=== PATIENT | female | born 1955 | race Caucasian/White ===

== ENCOUNTER 2025-07-30 17:20 | Emergency (ER) | payer OTHER ==
[~2025-07-30] VITALS: Ht 152.4 cm; Wt 76.4 kg
--- NOTE | 2025-07-30 19:34 | ED.PDOC ---
History of Present Illness HPI Comments 69 year-old female presents to the ED with a chief complaint of headache and bilateral ear pain for X2 weeks. Patient reports associated bilateral ear burning and itchy sensation. Patient has no further complaints at this time and otherwise denies symptoms of dizziness, weakness, hearing loss, vision loss, or SOB. Chief Complaint: Headache Time Seen by MD: 19:37 Reviewed Notes: Medications, Allergies Allergies: Coded Allergies: Carbamazepine (Verified Allergy, Unknown, 07/30/25) Home Meds Active Scripts Methylprednisolone (Medrol Dosepak) 4 Mg Oliver, 4 MG PO UD for 6 Days, #21 TAB UAD Prov:SHERRY MICHELLE [employer] BUFFER 07/30/25 Information Source: Patient Mode of Arrival: Ambulatory Severity: Moderate Timing: Weeks Duration: Since onset Past Medical History PAST MEDICAL HISTORY: Asthma, HTN, Seizures Surgical History: Unknown TELESCOPE REPAIRER History: No Pertinent TELESCOPE REPAIRER History Family History Family History: Unknown Social History Smoker: Non-Smoker, Unknown Alcohol: Denies ETOH Use Drugs: Denies Drug Use Lives In: Home Constitutional: denies: chills, diaphoresis, fatigue, fever, malaise, sweats, weakness, others EENTM: reports: ear pain; denies: blurred vision, double vision, ear bleeding, ear discharge, ear drainage, ear ringing, eye pain, eye redness, hearing loss, mouth pain, mouth swelling, nasal discharge, nose bleeding, nose congestion, nose pain, photophobia, tearing, throat pain, throat swelling, voice changes, others Respiratory: denies: cough, hemoptysis, orthopnea, SOB at rest, shortness of breath, SOB with excertion, stridor, wheezing, others Cardiovascular: denies: chest pain, dizzy spells, diaphoresis, Dyspnea on exertion, edema, irregular heart beat, left arm pain, lightheadedness, palpitations, PND, syncope, others Gastrointestinal: denies: abdomen distended, abdominal pain, blood streaked bowels, constipated, diarrhea, dysphagia, difficulty swallowing, hematemesis, melena, nausea, poor appetite, poor fluid intake, rectal bleeding, rectal pain, vomiting, others Genitourinary: denies: abnormal vagina bleeding, burning, dyspareunia, dysuria, flank pain, frequency, hematuria, incontinence, pain, , vagina discharge, urgency, others Neurological: reports: headache; denies: dizziness, fainting, left sided numbness, left sided weakness, numbness, paresthesia, pre-existing deficit, right sided numbness, right sided weakness, seizure, speech problems, tingling, tremors, weakness, others Musculoskeletal: denies: back pain, gout, joint pain, joint swelling, muscle pain, muscle stiffness, neck pain, others Integumetry: denies: bruises, change in color, change in hair/nails, dryness, laceration, lesions, lumps, rash, wounds, others Hematologic/Lymphatic: denies: anemia, blood clots, easy bleeding, easy bruising, swollen glands, others Endocrine: denies: excessive hunger, excessive sweating, excessive thirst, excessive urination, flushing, intolerance to cold, intolerance to heat, unexplained weight gain, unexplained weight loss, others Psychiatric: denies: anxiety, bipolar disorder, depression, hopeless, panic disorder, schizophrenia, sleepless, suicidal, others All Other Systems: Reviewed and Negative Physical Exam General Appearance: No Apparent Distress, Normal HEENT: Normal ENT Inspection, Pharynx Normal, TMs Normal Neck: Full Range of Motion, Non-Tender Respiratory: Lungs Clear, No Respiratory Distress, Normal Breath Sounds Cardiovascular: No Edema, No JVD, No Murmur, No Gallop, Normal Peripheral Pulses, Regular Rate/Rhythm Breast Exam: Deferred Gastrointestinal: No Organomegaly, Non Tender, No Pulsatile Mass, Normal Bowel Sounds, Soft Genitalia: Deferred Pelvic: Deferred Rectal: Deferred Extremities: Normal capillary refill, Normal range of motion, No pedal edema Musculoskeletal : Apperance: Normal Neurologic: Alert, No Motor Deficits, Normal Affect, Normal Mood, No Sensory Deficits Cerebellar Function: Normal Reflexes: NOT DONE Skin: Dry, Normal Color, Rash (Erythema and moderate tenderness bilateral ears), Warm Lymphatic: No Adenopathy Was a procedure done? Was a procedure done?: No Differential Dx Considerations may include: Polychondritis X-Ray, Labs, Meds, VS Vital Signs Date Time Temp Pulse Resp B/P (MAP) Pulse Ox O2 Delivery O2 Flow Rate FiO2 07/30/25 22:10 167/79 07/30/25 22:02 65 16 167/79 (108) 96 07/30/25 21:44 Room Air* 0 21 07/30/25 21:11 200/95 07/30/25 21:10 98.5 77 18 200/95 (130) 95 98.5 07/30/25 17:22 98.1 82 16 178/104 92 98.1 Lab Test 07/30/25 19:56 Range/Units White Blood Count 6.8 4.4-10.8 10^3/uL Red Blood Count 4.69 4.0-5.20 10^6/uL Hemoglobin 14.0 12.2-16.2 g/dL Hematocrit 41.8 36.0-46.0 % Mean Corpuscular Volume 89.1 80.0-100.0 fL Mean Corpuscular Hemoglobin 29.9 28.0-32.0 pg Mean Corpuscular Hemoglobin Concent 33.6 32.0-36.0 g/dL Red Cell Distribution Width 13.4 11.8-14.3 % Platelet Count 247 140-450 10^3/uL Mean Platelet Volume 7.6 6.9-10.8 fL Neutrophils (%) (Auto) 55.5 37.0-80.0 % Lymphocytes (%) (Auto) 32.6 10.0-50.0 % Monocytes (%) (Auto) 8.3 0.0-12.0 % Eosinophils (%) (Auto) 2.7 0.0-7.0 % Basophils (%) (Auto) 0.9 0.0-2.0 % Neutrophils # (Auto) 3.8 1.6-8.6 10 ^3/uL Lymphocytes # (Auto) 2.2 0.4-5.4 10 ^3/uL Monocytes # (Auto) 0.6 0-1.3 10 ^3/uL Eosinophils # (Auto) 0.2 0-0.8 10 ^3/uL Basophils # (Auto) 0.1 0-0.2 10 ^3/uL Nucleated Red Blood Cells 0.1 % Erythrocyte Sedimentation Rate 10 0-20 mm/hr Sodium Level 141 136-145 mmol/L Potassium Level 3.8 3.5-5.1 mmol/L Chloride Level 103 98-107 mmol/L Carbon Dioxide Level 30 20-31 mmol/L Anion Gap 8 5-15 Blood Urea Nitrogen 14 9-23 mg/dL Creatinine 0.86 0.550-1.02 mg/dL Glomerular Filtration Rate Calc 72 >90 mL/min BUN/Creatinine Ratio 16.3 10.0-20.0 Serum Glucose 89 74-106 mg/dL Calcium Level 10.2 8.7-10.4 mg/dL Total Bilirubin 0.3 0.2-1.0 mg/dL Aspartate Amino Transferase (AST) 26 13-40 U/L Alanine Aminotransferase (ALT) 24 7-40 U/L Alkaline Phosphatase 111 46-116 U/L C-Reactive Protein High Sensitivity 0.69 <1.0 mg/dL Total Protein 7.9 5.7-8.2 g/dL Albumin 4.8 3.2-4.8 g/dL [facility] [id number] [place] [address] Ph: [phone] DIAGNOSTIC IMAGING Diagnostic Imaging Report : [id number] Signed PATIENT: DEIDRE PUCKETT ACCT: [id number] UNIT: [id number] : 1955 LOC: ER ROOM / BED: / AGE / SEX: 69 / F ADM STATUS: REG ER SERVICE 40 ORDERING PHYSICIAN: SHERRY MICHELLE PROCEDURE(s): CXR2 - CHEST TWO VIEWS ROUTINE REASON: sob ORDER NUMBER(s): [id number], ACCESSION NUMBER(s): [id number] XY CHEST TWO VIEWS ROUTINE CLINICAL HISTORY: sob COMPARISON: DI CHEST,TWO VIEWS on DOS: 04/01/23 TECHNIQUE: Frontal and lateral view of the chest was obtained FINDINGS: Lines and Tubes: None Lungs: Dominant airspace disease in the retrocardiac area of the left lower lobe noted posteriorly on the lateral film findings consistent with airspace disease Pleura: No effusion. No pneumothorax. Cardiomediastinal contours: Unremarkable Bones: No acute osseous abnormality. IMPRESSION: 1. Findings consistent with Airspace disease left lower lobe. X-Ray, Labs, Meds, VS Comment FINDINGS: Lines and Tubes: None Lungs: Dominant airspace disease in the retrocardiac area of the left lower lobe noted posteriorly on the lateral film findings consistent with airspace disease Pleura: No effusion. No pneumothorax. Cardiomediastinal contours: Unremarkable Bones: No acute osseous abnormality. IMPRESSION: 1. Findings consistent with Airspace disease left lower lobe. CBC, CMP, ESR all within normal limits. Chest x-ray shows no acute pathology does show airspace disease left lower lobe. Patient was given Toradol, Solu- Medrol, and clonidine she reports moderate improvement in symptoms and requesting discharge at this time. Script trial of steroids. Advised to take medication as prescribed side effects discussed. Advised patient to follow up with her PCP schedule an appointment for follow up regarding findings on x-ray. Recommend referral to Rheumatology if symptoms persist. Patient indicates understanding and agrees with discharge plan of care Images Reviewed?: Images reviewed and evaluated by me Time of 1ST Reevaluation: 20:18 Reevaluation 1ST: Unchanged Reevaluation 2ND: Improved Patient Education/Counseling: Diagnosis, Treatment Family Education/Counseling: No Family Present SEPSIS Sepsis Screen Date sepsis recognized/suspect: Jul 30, 2025 Time Sepsis recognized/suspect: 1721 Recent Procedure: No On Antibiotic Therapy: No Respiratory Rate >20: No Heart Rate >90: No Temp<36 C (96.8 F) or >38.3 C: No SBP <90 or MAP <65 mmHG: No New Acute Mental Status Change: No Is the patient on CPAP, BIPAP,: No Physician Orders Chest Two Views Routine (07/30/25 19:41) Vital Signs Date Time Temp Pulse Resp B/P (MAP) Pulse Ox O2 Delivery O2 Flow Rate FiO2 07/30/25 22:10 167/79 07/30/25 22:02 65 16 167/79 (108) 96 07/30/25 21:44 Room Air* 0 21 07/30/25 21:11 200/95 07/30/25 21:10 98.5 77 18 200/95 (130) 95 98.5 07/30/25 17:22 98.1 82 16 178/104 92 98.1 Laboratory Tests Test 07/30/25 19:56 White Blood Count 6.8 10^3/uL (4.4-10.8) Departure 1 Departure Time of Disposition: 22:02 Impression: Primary Impression: Polychondritis Disposition: 01 HOME / SELF CARE / HOMELESS Condition: Stable e-Prescriptions Methylprednisolone (Medrol Dosepak) 4 Mg Oliver 4 MG PO UD for 6 Days, #21 TAB UAD Prov: SHERRY MICHELLE SIM 07/30/25 Discharged With: Self Critical Care Note Critical Care Time?: No Stability Stability form required: No Heart Score Heart Score: Heart Score Response (Comments) Value History N/A 0 EKG N/A 0 Age N/A 0 Risk Factors N/A 0 Troponin N/A 0 Total 0 I personally scribed for ER (EMERGENCY) on 07/30/25 at 19:34. Electronically submitted by Katie Shah (Kahuna). I personally scribed for ER (EMERGENCY) on 07/30/25 at 19:41. Electronically submitted by Katie Shah (Kahuna). I personally scribed for ER (EMERGENCY) on 07/30/25 at 21:29. Electronically submitted by Katie Shah (Kahuna). ER Jul 30, 2025 19:34 SHERRY MICHELLE [employer] BUFFER Jul 30, 2025 22:03
[2025-07-30 20:07] LABS: Hematocrit 41.8 % (36.0-46.0); Hemoglobin 14.0 g/dL (12.2-16.2); Mean Corpuscular Hemoglobin 29.9 pg (28.0-32.0); Mean Corpuscular Volume 89.1 fL (80.0-100.0); Nucleated Red Blood Cells % 0.1 %
[2025-07-30 20:23] LABS: Alanine Aminotransferase 24 U/L (7-40); Alkaline Phosphatase 111 U/L (46-116); Anion Gap 8 (5-15); BUN/Creatinine Ratio 16.3 (10.0-20.0); Blood Urea Nitrogen 14 mg/dL (9-23); Calcium 10.2 mg/dL (8.7-10.4); Carbon Dioxide 30 mmol/L (20-31); Chloride 103 mmol/L (98-107); Glucose 89 mg/dL (74-106); Potassium 3.8 mmol/L (3.5-5.1); Sodium 141 mmol/L (136-145); Total Protein 7.9 g/dL (5.7-8.2)
[2025-07-30 20:24] LABS: Bilirubin, Total 0.3 mg/dL (0.2-1.0)
[2025-07-30 20:25] LABS: Albumin 4.8 g/dL (3.2-4.8)
--- NOTE | 2025-07-30 21:09 | DVH ---
XY CHEST TWO VIEWS ROUTINE CLINICAL HISTORY: sob COMPARISON: DI CHEST,TWO VIEWS on DOS: 04/01/23 TECHNIQUE: Frontal and lateral view of the chest was obtained FINDINGS: Lines and Tubes: None Lungs: Dominant airspace disease in the retrocardiac area of the left lower lobe noted posteriorly on the lateral film findings consistent with airspace disease Pleura: No effusion. No pneumothorax. Cardiomediastinal contours: Unremarkable Bones: No acute osseous abnormality. IMPRESSION: 1. Findings consistent with Airspace disease left lower lobe.
[2025-07-30 21:10] VITALS: TEMP 98.5
[2025-07-30] MEDS: KETOROLAC TROMETH 30 MG/ML 1ML VIAL IV ONE (21:11)
[2025-07-30] MEDS: methylPREDNISolone SOD SUCC 125 MG/2 ML VL IV ONE (21:11)
[2025-07-30] MEDS: SODIUM CHLORIDE 0.9% 1,000 ML IV ONE (21:17)
[2025-07-30 22:02] VITALS: BP 167/79; PULSE 65; RESP 16; O2SAT 96
[2025-07-30] MEDS ORDERED: METH4PAK PO (22:03)
== END 2025-07-30 22:14 | disposition home or self-care (01) ==
LOC: ER 17:20
DX: M94.8X9 Other specified disorders of cartilage, unspecified sites (principal); I10 Essential (primary) hypertension; Z79.899 Other long term (current) drug therapy
CPT/HCPCS: 36415; 71046; 80053; 85025; 85652; 86141; 96374; 96375; 99284; J1885; J2919